=== PATIENT | male | born 1975 | race Caucasian/White ===

== ENCOUNTER 2018-06-28 16:32 | Inpatient (IN) | payer OTHER ==
[2018-06-28] MEDS ORDERED: ACETAMINOPHEN 325 MG TAB PO ×2 (17:00→19:00)
[2018-06-28] MEDS ORDERED: ONDANSETRON 4 MG INJ IV ×2 (17:00→19:00)
[2018-06-28] MEDS ORDERED: HYDROCODONE/APAP (5/325) TAB PO (19:00)
[2018-06-28] MEDS ORDERED: NACL 0.9% 3 ML SYG IV (19:00)
[2018-06-28] MEDS ORDERED: ZOLPIDEM 5 MG TAB PO (19:00)
[2018-06-28] MEDS: SOD CHLORIDE 0.9% 1,000 ML IV ×2 (19:59→22:30)
[2018-06-28] MEDS: METHYLPREDNISOLONE 40 MG INJ IV (22:30)
[2018-06-29 05:23] LABS: ADD MAN DIFF? NO
[2018-06-29 05:32] LABS: BASOPHILS % 0.1 % (0.0-2.0); HEMATOCRIT 39.1 % (42.0-52.0); HEMOGLOBIN 12.7 g/dl (14.0-18.0); LYMPHOCYTES # 1.3 10^3/ul (0.8-2.9); LYMPHOCYTES % 12.5 % (15.0-51.0); MEAN CORPUSCULAR HEMOGLOBIN 27.7 pg (29.0-33.0); MEAN CORPUSCULAR HGB CONC 32.5 g/dl (32.0-37.0); MEAN CORPUSCULAR VOLUME 85.4 fl (82.0-101.0); MEAN PLATELET VOLUME 9.3 fl (7.4-10.4); MONOCYTE # 0.2 10^3/ul (0.3-0.9); MONOCYTES % 2.2 % (0.0-11.0); NEUTROPHIL # 8.9 10^3/ul (1.6-7.5); NEUTROPHILS % 84.8 % (39.0-77.0); PLATELET COUNT 472 10^3/UL (140-415); RED BLOOD COUNT 4.58 10^6/ul (4.70-6.10); RED CELL DISTRIBUTION WIDTH 13.8 % (11.5-14.5)
[2018-06-29 05:32] LABS: WHITE BLOOD COUNT 10.5 10^3/ul (4.8-10.8)
[2018-06-29 05:38] LABS: HEMOGLOBIN A1C 5.5 % (0-5.9)
[2018-06-29] MEDS: METHYLPREDNISOLONE 40 MG INJ IV ×3 (05:44→21:24)
[2018-06-29 05:50] LABS: ANION GAP 9 (5-13); BLOOD UREA NITROGEN 17 mg/dl (7-20); CALCIUM 9.4 mg/dl (8.4-10.2); CARBON DIOXIDE 29 mmol/L (21-31); CHLORIDE 104 mmol/L (97-110); CREATININE 0.55 mg/dl (0.61-1.24); Estimated GFR > 60 mL/min (>60); GLUCOSE 139 mg/dl (70-220); MAGNESIUM 2.3 mg/dl (1.7-2.5); PHOSPHORUS 4.5 mg/dl (2.5-4.9); POTASSIUM 4.8 mmol/L (3.5-5.1); SODIUM 142 mmol/L (135-144)
[2018-06-29] MEDS: SOD CHLORIDE 0.9% 1,000 ML IV ×2 (07:15→18:58)
[2018-06-29 09:51] LABS: C-REACTIVE PROTEIN 2.1 mg/dl (0.0-0.9)
[2018-06-29] MEDS: MESALAMINE (EC) 400 MG CAP PO ×2 (12:17→21:24)
[2018-06-30] MEDS: SOD CHLORIDE 0.9% 1,000 ML IV (05:01)
[2018-06-30] MEDS: METHYLPREDNISOLONE 40 MG INJ IV ×2 (05:31→13:19)
[2018-06-30 05:41] LABS: ADD MAN DIFF? NO
[2018-06-30 05:42] LABS: BASOPHILS % 0.1 % (0.0-2.0); HEMATOCRIT 37.3 % (42.0-52.0); LYMPHOCYTES # 1.4 10^3/ul (0.8-2.9); LYMPHOCYTES % 8.7 % (15.0-51.0); MEAN CORPUSCULAR HEMOGLOBIN 27.6 pg (29.0-33.0); MEAN CORPUSCULAR HGB CONC 32.2 g/dl (32.0-37.0); MEAN CORPUSCULAR VOLUME 85.9 fl (82.0-101.0); MEAN PLATELET VOLUME 9.8 fl (7.4-10.4); MONOCYTE # 0.6 10^3/ul (0.3-0.9); MONOCYTES % 4.1 % (0.0-11.0); NEUTROPHIL # 13.5 10^3/ul (1.6-7.5); NEUTROPHILS % 86.5 % (39.0-77.0); PLATELET COUNT 444 10^3/UL (140-415); RED BLOOD COUNT 4.34 10^6/ul (4.70-6.10)
[2018-06-30 05:42] LABS: WHITE BLOOD COUNT 15.6 10^3/ul (4.8-10.8)
[2018-06-30 06:13] LABS: ALANINE AMINOTRANSFERASE 13 IU/L (13-69); ALBUMIN 3.7 g/dl (3.3-4.9); ALBUMIN/GLOBULIN RATIO 1.15; ALKALINE PHOSPHATASE 60 IU/L (42-121); ANION GAP 7 (5-13); ASPARTATE AMINO TRANSFERASE 18 IU/L (15-46); BILIRUBIN,INDIRECT 0.3 mg/dl (0-1.1); BILIRUBIN,TOTAL 0.3 mg/dl (0.2-1.3); BLOOD UREA NITROGEN 13 mg/dl (7-20); CALCIUM 9.1 mg/dl (8.4-10.2); CARBON DIOXIDE 30 mmol/L (21-31); CHLORIDE 105 mmol/L (97-110); CREATININE 0.53 mg/dl (0.61-1.24); Estimated GFR > 60 mL/min (>60); GLUCOSE 136 mg/dl (70-220); POTASSIUM 4.6 mmol/L (3.5-5.1); SODIUM 142 mmol/L (135-144); TOTAL PROTEIN 6.9 g/dl (6.1-8.1)
[2018-06-30] MEDS: MESALAMINE (EC) 400 MG CAP PO ×2 (09:05→13:18)
[2018-06-30] MEDS: morphine 2 MG INJ IV (11:25)
== END 2018-06-30 17:45 | disposition home or self-care (01) | DRG 387 ==
LOC: E/R 16:32 → 2NE 16:48
PROVIDERS: Internal Medicine
DX: K51.90 Ulcerative colitis, unspecified, without complications (principal); T47.8X6A Underdosing of other agents primarily affecting gastrointestinal system, initial encounter; Z91.128 Patient's intentional underdosing of medication regimen for other reason; Z87.19 Personal history of other diseases of the digestive system
CPT/HCPCS: 80048; 80053; 83036; 83735; 84100; 85025; 85651; 86140; 87045; 87075; 87205; 99285-25

== ENCOUNTER 2018-08-15 13:25 | Day surgery (SDC) | payer OTHER ==
[2018-08-15] MEDS ORDERED: LIDOCAINE 2% (SDV) 5 ML INJ (17:31)
[2018-08-15] MEDS ORDERED: PROPOFOL 40 ML (17:31)
== END 2018-08-15 20:19 | disposition home or self-care (01) ==
LOC: GIL 13:25
DX: K51.90 Ulcerative colitis, unspecified, without complications (principal); K64.8 Other hemorrhoids
CPT/HCPCS: 45380; 88305